=== PATIENT | female | born 1985 | race Hispanic/Latino ===

== ENCOUNTER 2016-08-13 20:14 | Emergency (ER) | payer SELFPAY ==
[2016-08-13 20:35] VITALS: BP 100/63
== END 2016-08-14 00:42 | disposition left against medical advice (07) ==
LOC: ED 20:14
DX: R50.9 Fever, unspecified (principal); H92.09 Otalgia, unspecified ear; Z53.21 Procedure and treatment not carried out due to patient leaving prior to being seen by health care provider

== ENCOUNTER 2016-08-14 15:52 | Emergency (ER) | payer SELFPAY ==
[2016-08-14 16:20] VITALS: BP 122/74
== END 2016-08-15 01:23 | disposition left against medical advice (07) ==
LOC: ED 15:52
DX: R50.9 Fever, unspecified (principal); R05 Cough; H92.09 Otalgia, unspecified ear; Z53.21 Procedure and treatment not carried out due to patient leaving prior to being seen by health care provider

== ENCOUNTER 2018-11-24 10:34 | Emergency (ER) | payer MEDICAID ==
[2018-11-24 10:56] VITALS: BP 106/50
--- NOTE | 2018-11-24 11:32 | XRay Report ---
ROUTINE CHEST, TWO VIEWS: HISTORY: Shortness of breath. The trachea, heart, mediastinal contour, lung contreras and bony thorax are unremarkable. IMPRESSION: Unremarkable chest x-ray.
--- NOTE | 2018-11-24 14:31 | Emergency Department Report ---
Minor Respiratory - HPI Chief Complaint: Dyspnea/Respdistress Stated Complaint: VOMIT/ABD PAIN/LOWER BACK Time Seen by Provider: 11/24/18 13:24 Duration: 3 Days Pain Location: Nose Severity: mild Minor Respiratory: Yes Able to Tolerate Fluids, Yes Cough, No Rhinorrhea, No Sore Throat, No Ear Pain, No Sick Contacts, No Hemoptysis, No Chest Pain, No Shortness of Breath, No Fever Other History: 33-year-old female with a history of asthma presents with coughing and feeling a little bit tightness in her chest. Patient states she normally has an inhaler but she is running out. Patient denies fevers/chills/chest pain/shortness of breath/fevers/any other symptoms. ED Review of Systems ROS: Stated complaint: VOMIT/ABD PAIN/LOWER BACK Other details as noted in HPI Comment: All other systems reviewed and negative ED Past Medical Hx - Past Medical History Previous Medical History?: Yes Hx Hypertension: No Hx Congestive Heart Failure: No Hx Diabetes: No Hx Deep Vein Thrombosis: No Hx GERD: Yes Hx Renal Disease: No Hx Sickle Cell Disease: No Hx Headaches / Migraines: Yes (migraines) Hx Seizures: No Hx Asthma: Yes Hx COPD: No Hx HIV: No - Surgical History Past Surgical History?: Yes Additional Surgical History: tubal ligation - Social History Smoking Status: Never Smoker Substance Use Type: None - Medications Home Medications: Home Medications Medication Instructions Recorded Confirmed Last Taken Type HYDROcodone/APAP 5-325 [[place] 1 each PO Q6HR PRN #30 tablet 08/11/15 Unknown Rx 5/325] ALBUTEROL Inhaler(NF) [VENTOLIN 1 puff IH PRN #1 inha 11/24/18 Unknown Rx Inhaler(NF)] Ibuprofen [Motrin 800 MG tab] 800 mg PO Q8HR PRN #30 tablet 11/24/18 Unknown Rx guaiFENesin [Robitussin] 100 mg PO TID #80 ml 11/24/18 Unknown Rx Minor Respiratory Exam - Exam General: Vital signs noted. No distress. Alert and acting appropriately. HEENT: Yes Moist Mucous Membranes, No Pharyngeal Erythema, No Pharyngeal Exudates, No Rhinorrhea, No Conjuctival Injection, No Frontal Tenderness, No Maxillary Tenderness Ear: Neither TM Bulge, Neither TM Erythema, Neither EAC Pain, Neither EAC Discharge Neck: Yes Supple, No Adenopathy Lungs: Yes Good Air Exchange, No Wheezes, No Ronchi, No Stridor, No Cough, No Labored Respirations, No Retractions, No Use of Accessory Muscles, No Other Abnormal Lung Sounds Heart: Yes Regular, No Murmur Abdomen: Yes Normal Bowel Sounds, No Tenderness, No Peritoneal Signs Skin: No Rash, No Edema Neurologic: Alert and oriented, no deficits. Musculoskeletal: Unremarkable. ED Course Vital Signs 11/24/18 10:55 Temperature 98.3 F Pulse Rate 78 Respiratory 20 Rate Blood Pressure 106/50 [Right] O2 Sat by Pulse 98 Oximetry ED Medical Decision Making - Radiology Data Radiology results: report reviewed, image reviewed ROUTINE CHEST, TWO VIEWS: HISTORY: Shortness of breath. The trachea, heart, mediastinal contour, lung contreras and bony thorax are unremarkable. IMPRESSION: Unremarkable chest x-ray. Transcribed By: TTR Dictated By: PRATEEK NI JR, MD Electronically Authenticated By: PRATEEK NI JR, MD Signed Date/Time: 11/24/18 1127 - Medical Decision Making 33-year-old female with a history of asthma presents to ED with bronchitis X-ray shows no acute cardiopulmonary infections. Discussed findings with the patient. Discussed admission she was sent home on albuterol inhaler and cough suppressants. Discussed follow-up with primary care physician. Patient is in no acute distress or respiratory distress. She is asked for a work note to return back to her place of work Critical care attestation.: If time is entered above; I have spent that time in minutes in the direct care of this critically ill patient, excluding procedure time. ED Disposition Clinical Impression: Upper respiratory infection Disposition: DC-01 TO HOME OR SELFCARE Is pt being admited?: No Does the pt Need Aspirin: No Condition: Stable Instructions: Acute Bronchitis (ED), Viral Syndrome (ED) Additional Instructions: Make sure to follow up with the primary care physician as discussed. Take all your medications as you've been prescribed. If you have any worsening symptoms or develop new symptoms please return to ED immediately. Prescriptions: Ibuprofen [Motrin 800 MG tab] 800 mg PO Q8HR PRN #30 tablet PRN Reason: Pain guaiFENesin [Robitussin] 100 mg PO TID #80 ml ALBUTEROL Inhaler(NF) [VENTOLIN Inhaler(NF)] 1 puff IH PRN #1 inha Referrals: ABDIRAHMAN SOMMERS MD [Primary Care Provider] - 3-5 Days Forms: Work/School Release Form(ED) Time of Disposition: 14:34
== END 2018-11-24 14:43 | disposition home or self-care (01) ==
LOC: ED 10:34
DX: J06.9 Acute upper respiratory infection, unspecified (principal); J45.909 Unspecified asthma, uncomplicated; G43.909 Migraine, unspecified, not intractable, without status migrainosus; K21.9 Gastro-esophageal reflux disease without esophagitis; Z98.51 Tubal ligation status
CPT/HCPCS: 71046; 99283

== ENCOUNTER 2018-11-30 02:36 | Emergency (ER) | payer MEDICAID ==
[2018-11-30] MEDS ORDERED: FIORICET PO ONE (07:42)
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
[2018-11-30 08:18] VITALS: BP 120/70
== END 2018-11-30 08:16 | disposition home or self-care (01) ==
LOC: ED 02:36
DX: S01.81XA Laceration without foreign body of other part of head, initial encounter (principal); G43.909 Migraine, unspecified, not intractable, without status migrainosus; J45.909 Unspecified asthma, uncomplicated; Z98.51 Tubal ligation status; Y04.8XXA Assault by other bodily force, initial encounter; Y93.89 Activity, other specified; Y92.89 Other specified places as the place of occurrence of the external cause; Y99.8 Other external cause status
CPT/HCPCS: 99283

== ENCOUNTER 2018-12-18 09:17 | Emergency (ER) | payer MEDICAID ==
[2018-12-18 09:41] VITALS: BP 113/68
--- NOTE | 2018-12-18 10:43 | Emergency Department Report ---
Minor Respiratory - HPI Chief Complaint: Upper Respiratory Infection Stated Complaint: COUGH/CHEST PAIN Time Seen by Provider: 12/18/18 10:27 Duration: 1 week Pain Location: Chest Severity: moderate Minor Respiratory: Yes Rhinorrhea, Yes Able to Tolerate Fluids, Yes Cough, Yes Sick Contacts, Yes Chest Pain, No Sore Throat, No Ear Pain, No Hemoptysis, No Shortness of Breath, No Fever Other History: This is a 33-year-old female who presents to the emergency room with cough and chest discomfort for 1 week. Past medical history of migraines and asthma. Patient reports these in this initially when symptoms started which has resolved. Patient states she is discomfort is worse when supine. She has not taken any medication at this time. She denies fever, sore throat, shortness of breath, palpitations, nausea, vomiting, diarrhea, and myalgia. ED Review of Systems ROS: Stated complaint: COUGH/CHEST PAIN Other details as noted in HPI Constitutional: denies: chills, fever ENT: congestion. denies: ear pain, throat pain Respiratory: cough. denies: shortness of breath, wheezing Cardiovascular: chest pain. denies: palpitations Musculoskeletal: denies: myalgia Skin: denies: rash, lesions Neurological: denies: headache, weakness, paresthesias ED Past Medical Hx - Past Medical History Hx Hypertension: No Hx Congestive Heart Failure: No Hx Diabetes: No Hx Deep Vein Thrombosis: No Hx GERD: Yes Hx Renal Disease: No Hx Sickle Cell Disease: No Hx Headaches / Migraines: Yes (migraines) Hx Seizures: No Hx Asthma: Yes Hx COPD: No Hx HIV: No - Surgical History Additional Surgical History: tubal ligation - Social History Smoking Status: Never Smoker Substance Use Type: None - Medications Home Medications: Home Medications Medication Instructions Recorded Confirmed Last Taken Type HYDROcodone/APAP 5-325 [[place] 1 each PO Q6HR PRN #30 tablet 08/11/15 Unknown Rx 5/325] ALBUTEROL Inhaler(NF) [VENTOLIN 1 puff IH PRN #1 inha 11/24/18 Unknown Rx Inhaler(NF)] guaiFENesin [Robitussin] 100 mg PO TID #80 ml 11/24/18 Unknown Rx Butalb/Acetamin/Caff 50-325-40 1 tab PO Q8H #20 tablet 11/30/18 Unknown Rx [Fioricet 50-325-40] Cyclobenzaprine [Flexeril] 10 mg PO QHS PRN #20 tablet 11/30/18 Unknown Rx Ibuprofen [Motrin 800 MG tab] 800 mg PO Q8HR PRN #30 tablet 11/30/18 Unknown Rx ALBUTEROL Inhaler (OR & NICU) 2 puff IH QID PRN #1 inhalation 12/18/18 Unknown Rx [ProAir HFA Inhaler] Azithromycin [Zithromax Z-CHUY] 250 mg PO DAILY #6 tablet 12/18/18 Unknown Rx Benzonatate [Tessalon Perles] 100 mg PO Q8HR PRN #30 capsule 12/18/18 Unknown Rx Minor Respiratory Exam - Exam General: Vital signs noted. No distress. Alert and acting appropriately. HEENT: Yes Pharyngeal Erythema (erythematous posterior pharynx, uvula midline), Yes Moist Mucous Membranes, Yes Rhinorrhea (turbinates mildly congested with clear discharge), No Pharyngeal Exudates, No Conjuctival Injection, No Frontal Tenderness, No Maxillary Tenderness Ear: Neither TM Bulge, Neither TM Erythema, Neither EAC Pain, Neither EAC Discharge Neck: Yes Supple, No Adenopathy Lungs: Yes Good Air Exchange, Yes Cough, No Wheezes, No Ronchi, No Stridor, No Labored Respirations, No Retractions, No Use of Accessory Muscles, No Other Abnormal Lung Sounds Heart: Yes Regular, No Murmur Abdomen: Yes Normal Bowel Sounds, No Tenderness, No Peritoneal Signs Skin: No Rash, No Edema Neurologic: Alert and oriented, no deficits. Musculoskeletal: Unremarkable. ED Course Vital Signs 12/18/18 09:36 Temperature 98.1 F Pulse Rate 73 Respiratory 20 Rate Blood Pressure 113/68 [Left] O2 Sat by Pulse 98 Oximetry ED Medical Decision Making - Radiology Data Radiology results: report reviewed ROUTINE CHEST, TWO VIEWS: HISTORY: Cough. The trachea, heart, mediastinal contour, lung contreras and bony thorax are unremarkable. IMPRESSION: Unremarkable chest x-ray. No change since 11/24/18. - Medical Decision Making Patient was examined by me. Vitals are normal and patient is in no acute distress. Obtained a chest x-ray. Past medical history of asthma and migraines. X-rays dictated by radiologist and report reviewed by myself. Unremarkable chest x-ray. No change since 11/24/18. Patient will be treated for a bronchitis. Start albuterol inhaler, azithromycin, and benzonatate. Patient informed of results. Plan discussed with patient to discharge home and treat outpatient. Patient discharged home in stable condition. Follow up with PCP in 2-3 days. Critical care attestation.: If time is entered above; I have spent that time in minutes in the direct care of this critically ill patient, excluding procedure time. ED Disposition Clinical Impression: Cough, Chest discomfort, Bronchitis Disposition: TO HOME OR SELFCARE Is pt being admited?: No Does the pt Need Aspirin: No Condition: Stable Instructions: Chronic Bronchitis (ED) Additional Instructions: Complete full course of antibiotics since prescribed. Follow-up with her primary care doctor. Return to the emergency room if increased shortness of breath, chest pain, or fever. Prescriptions: ALBUTEROL Inhaler (OR & NICU) [ProAir HFA Inhaler] 2 puff IH QID PRN #1 inhalation PRN Reason: Shortness Of Breath Benzonatate [Tessalon Perles] 100 mg PO Q8HR PRN #30 capsule PRN Reason: Cough Azithromycin [Zithromax Z-CHUY] 250 mg PO DAILY #6 tablet Referrals: [facility] [Outside] - 3-5 Days [facility] [Outside] - 3-5 Days [facility] [Outside] - 3-5 Days Forms: Work/School Release Form(ED) Time of Disposition: 11:44
--- NOTE | 2018-12-18 11:17 | XRay Report ---
ROUTINE CHEST, TWO VIEWS: HISTORY: Cough. The trachea, heart, mediastinal contour, lung contreras and bony thorax are unremarkable. IMPRESSION: Unremarkable chest x-ray. No change since 11/24/18.
== END 2018-12-18 12:00 | disposition home or self-care (01) ==
LOC: ED 09:17
DX: J40 Bronchitis, not specified as acute or chronic (principal); K21.9 Gastro-esophageal reflux disease without esophagitis; G43.909 Migraine, unspecified, not intractable, without status migrainosus
CPT/HCPCS: 71046

== ENCOUNTER 2019-11-29 11:14 | Emergency (ER) | payer MEDICAID ==
[2019-11-29 11:21] VITALS: BP 112/51
--- NOTE | 2019-11-29 12:18 | Event Note ---
ED Screening Note ED Screening Note: pt presents with right ear pain that began 2-3 days ago she states that her filling feel out of her right lower tooth states she is having right lower dental pain states she filled the tooth with dental puddy she states she has not seen a dentist in a year no fever, no n/v/d, no facial swelling no difficulty breathing PMHx asthma no allergies to meds LNMP: 11/17/2019 This initial assessment/diagnostic orders/clinical plan/treatment(s) is/are subject to change based on patients health status, clinical progression and re- assessment by fellow clinical providers in the ED. Further treatment and workup at subsequent clinical providers discretion. Patient/guardian urged not to elope from the ED as their condition may be serious if not clinically assessed and managed.
--- NOTE | 2019-11-29 12:21 | Emergency Department Report ---
Chief Complaint: Earache Stated Complaint: RT EARACHE Time Seen by Provider: 11/29/19 12:13 - HPI History of Present Illness: pt is a 34 yo female who presents with right ear pain that began 2-3 days ago she states that her tooth filling fell out of her right lower tooth states she is having right lower dental pain states she filled the tooth with dental puddy she states she has not seen a dentist in a year no fever, no n/v/d, no facial swelling no difficulty breathing PMHx asthma no allergies to meds LNMP: 11/17/2019 Vitals are normal On exam: Non toxic appearing, no acute distress atraumatic, normocephalic normal appearance of the eyes, PERRL, EOMI, no periorbital edema or ecchymosis moist mucus membranes, there is dental putty present in the back right lower teeth, there is no induration or edema of the jawline, no facial swelling, uvula is midline, no uvular edema, no uvular deviation, no trismus, no tongue elevation, no submandibular swelling, bilateral TMs and canals are normal, no mastoid tenderness to palpation regular heart rate and rhythm, no gallops, no rubs, no murmurs breath sounds are clear bilaterally, no w/r/r A&O x4, no focal neuro deficit skin is warm, dry, intact Patient is presenting with a cracked tooth which is causing dental pain and earache No signs of dental infection, dental abscess, facial cellulitis Patient will be referred to a dentist Patient is presenting with a nonmedical emergency at this time, medical screenin g examination performed and there is no threat to life or limb at this time Discussed return precautions with patient - Exam Vital Signs: Vital Signs 11/29/19 11:18 Temperature 98.4 F Pulse Rate 76 Respiratory 18 Rate Blood Pressure 112/51 O2 Sat by Pulse 98 Oximetry MSE screening note: Focused history and physical exam performed. ED Disposition for MSE Clinical Impression: Cracked tooth, Dental caries, Otalgia of right ear Disposition: Z-07 MED SCREENING EXAM-LEFT Is pt being admited?: No Does the pt Need Aspirin: No Condition: Stable Instructions: Dental Caries (ED), Earache (ED) Additional Instructions: may alternate tylenol or ibuprofen as needed for pain every 6-8 hours. follow up with a dentist. it is very important to follow up with the dentist. return to the emergency room for any new or worsening symptoms. Referrals: [facility] [Outside] - 3-5 Days [facility] [Outside] - 3-5 Days Forms: Work/School Release Form(ED) Time of Disposition: 12:20 Print Language: ANGUILLAN
== END 2019-11-29 12:49 | disposition left against medical advice (07) ==
LOC: ED 11:14
DX: H92.01 Otalgia, right ear (principal); K03.81 Cracked tooth; K02.9 Dental caries, unspecified; J45.909 Unspecified asthma, uncomplicated
CPT/HCPCS: 99281

== ENCOUNTER 2019-12-09 10:04 | Emergency (ER) | payer MEDICAID ==
[2019-12-09 10:14] VITALS: BP 109/56
--- NOTE | 2019-12-09 10:46 | Emergency Department Report ---
Minor Respiratory - HPI Chief Complaint: Chest Pain Stated Complaint: CHEST PAIN/RIB PAIN/NOSE STUFFY Time Seen by Provider: 12/09/19 10:46 Duration: 3 Days Pain Location: Other Severity: mild Minor Respiratory: Yes Rhinorrhea, Yes Able to Tolerate Fluids, Yes Chest Pain, No Sore Throat, No Ear Pain, No Cough, No Sick Contacts, No Hemoptysis, No Shortness of Breath, No Fever Other History: Patient is a 34-year-old female who comes to the ER complaining of right-sided rib pain and runny nose. She has a history of bronchitis. She denies fever or chills. She denies cough or sputum. Patient denies any trauma. Patient was on her phone on the way to [facility] when she was asked to get off the phone she refused. I explained her that it interferes with some of our medical equipment. She rolled her eyes and told me that a lot of things interfere with different things. Patient is ambulatory nontoxic in no acute distress ED Review of Systems ROS: Stated complaint: CHEST PAIN/RIB PAIN/NOSE STUFFY Other details as noted in HPI Comment: All other systems reviewed and negative ED Past Medical Hx - Past Medical History Hx Hypertension: No Hx Congestive Heart Failure: No Hx Diabetes: No Hx Deep Vein Thrombosis: No Hx GERD: Yes Hx Renal Disease: No Hx Sickle Cell Disease: No Hx Headaches / Migraines: Yes (migraines) Hx Seizures: No Hx Asthma: Yes Hx COPD: No Hx HIV: No - Surgical History Additional Surgical History: tubal ligation - Social History Smoking Status: Never Smoker Substance Use Type: None - Medications Home Medications: Home Medications Medication Instructions Recorded Confirmed Last Taken Type Albuterol Sulfate [Proair 90 mcg IH QID PRN #1 aer.pow.[email or web address] 12/09/19 Unknown Rx Respiclick] Cetirizine HCl [ZyrTEC] 10 mg PO DAILY #30 capsule 12/09/19 Unknown Rx Fluticasone [Flonase] 1 spray NS QDAY #1 bottle 12/09/19 Unknown Rx predniSONE [Deltasone] 20 mg PO DAILY #5 tablet 12/09/19 Unknown Rx Minor Respiratory Exam - Exam General: Vital signs noted. No distress. Alert and acting appropriately. HEENT: Yes Moist Mucous Membranes, No Pharyngeal Erythema, No Pharyngeal Exudates, No Rhinorrhea, No Conjuctival Injection, No Frontal Tenderness, No Maxillary Tenderness Ear: Neither TM Bulge, Neither TM Erythema, Neither EAC Pain, Neither EAC Discharge Neck: Yes Supple, No Adenopathy Lungs: Yes Good Air Exchange, No Wheezes, No Ronchi, No Stridor, No Cough, No Labored Respirations, No Retractions, No Use of Accessory Muscles, No Other Abnormal Lung Sounds Heart: Yes Regular, No Murmur Abdomen: Yes Normal Bowel Sounds, No Tenderness, No Peritoneal Signs Skin: No Rash, No Edema Neurologic: Alert and oriented, no deficits. Musculoskeletal: Unremarkable. ED Course Vital Signs 12/09/19 10:10 Temperature 98 F Pulse Rate 63 Respiratory 18 Rate Blood Pressure 109/56 O2 Sat by Pulse 98 Oximetry ED Medical Decision Making - EKG Data Rate: normal - EKG Data When compared to previous EKG there are: no significant change Interpretation: no acute changes - Radiology Data Radiology results: report reviewed, image reviewed - Medical Decision Making 12 lead normal xray no consolidation dc home with dc poc and pcp follow up Vital Signs 12/09/19 10:10 Temperature 98 F Pulse Rate 63 Respiratory 18 Rate Blood Pressure 109/56 O2 Sat by Pulse 98 Oximetry - Differential Diagnosis ro urti/ acs Critical care attestation.: If time is entered above; I have spent that time in minutes in the direct care of this critically ill patient, excluding procedure time. ED Disposition Clinical Impression: Bronchitis Disposition: DC-01 TO HOME OR SELFCARE Is pt being admited?: No Does the pt Need Aspirin: No Condition: Stable Instructions: Acute Bronchitis (ED) Prescriptions: predniSONE [Deltasone] 20 mg PO DAILY #5 tablet Fluticasone [Flonase] 1 spray NS QDAY #1 bottle Albuterol Sulfate [Proair Respiclick] 90 mcg IH QID PRN #1 aer.[email or web address] PRN Reason: Wheezing Cetirizine HCl [ZyrTEC] 10 mg PO DAILY #30 capsule Time of Disposition: 10:57
--- NOTE | 2019-12-09 11:58 | XRay Report ---
CHEST 2 VIEWS INDICATION / CLINICAL INFORMATION: Chest pain. COMPARISON: 12/18/2018 FINDINGS: SUPPORT DEVICES: None. HEART / MEDIASTINUM: No significant abnormality. LUNGS / PLEURA: No significant pulmonary or pleural abnormality. No pneumothorax. ADDITIONAL FINDINGS: No significant additional findings. IMPRESSION: 1. No acute findings. Signer Name: Zaid Davey MD Signed: 12/09/2019 11:53 AM Workstation Name: [id number]
== END 2019-12-09 11:03 | disposition home or self-care (01) ==
LOC: ED 10:04
DX: J40 Bronchitis, not specified as acute or chronic (principal); G43.909 Migraine, unspecified, not intractable, without status migrainosus; Z98.51 Tubal ligation status; Z79.899 Other long term (current) drug therapy
CPT/HCPCS: 71046; 93005

== ENCOUNTER 2019-12-14 16:30 | Emergency (ER) | payer MEDICAID ==
[2019-12-14 16:44] VITALS: BP 121/67
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
== END 2019-12-14 18:26 | disposition left against medical advice (07) ==
LOC: ED 16:30
DX: H61.22 Impacted cerumen, left ear (principal); G43.909 Migraine, unspecified, not intractable, without status migrainosus; Z98.51 Tubal ligation status
CPT/HCPCS: 99282

== ENCOUNTER 2020-03-31 07:40 | Emergency (ER) | payer MEDICAID ==
[2020-03-31] MEDS ORDERED: IBUPROFEN 600 MG TAB PO ONE (08:26)
--- NOTE | 2020-03-31 08:26 | Emergency Department Report ---
ED ENT HPI - General Chief complaint: Earache Stated complaint: RT EAR/NOSE PAIN Time Seen by Provider: 03/31/20 08:08 Source: patient Mode of arrival: Ambulatory Limitations: No Limitations - History of Present Illness Initial comments: 34 yr old female presents to ED c/o right ear pain. Onset about 4 days ago. She states its a throbbing pain radiating into right anterior neck. She reports associated ROGERS, rhinorrhea and nasal congestions. She denies fever, chills, cough, ear drainage or any other symptoms at this time. MD complaint: ear pain -: days(s) (4) - Related Data Previous Rx's Medication Instructions Recorded Last Taken Type Albuterol Sulfate [Proair 90 mcg IH QID PRN #1 aer.pow.ba 12/09/19 Unknown Rx Respiclick] predniSONE [Deltasone] 20 mg PO DAILY #5 tablet 12/09/19 Unknown Rx Amoxicillin [Trimox CAP] 500 mg PO Q8H #30 capsule 03/31/20 Unknown Rx Cetirizine HCl [ZyrTEC 10mg cap] 10 mg PO DAILY #30 capsule 03/31/20 Unknown Rx Fluticasone [Flonase] 2 spray NS QDAY #1 bottle 03/31/20 Unknown Rx Allergies Allergy/AdvReac Type Severity Reaction Status Date / Time No Known Allergies Allergy Verified 12/09/19 10:09 ED Dental HPI - General Chief complaint: Earache Stated complaint: RT EAR/NOSE PAIN Time Seen by Provider: 03/31/20 08:08 Source: patient Mode of arrival: Ambulatory Limitations: No Limitations - Related Data Previous Rx's Medication Instructions Recorded Last Taken Type Albuterol Sulfate [Proair 90 mcg IH QID PRN #1 aer.pow. 12/09/19 Unknown Rx Respiclick] predniSONE [Deltasone] 20 mg PO DAILY #5 tablet 12/09/19 Unknown Rx Amoxicillin [Trimox CAP] 500 mg PO Q8H #30 capsule 03/31/20 Unknown Rx Cetirizine HCl [ZyrTEC 10mg cap] 10 mg PO DAILY #30 capsule 03/31/20 Unknown Rx Fluticasone [Flonase] 2 spray NS QDAY #1 bottle 03/31/20 Unknown Rx Allergies Allergy/AdvReac Type Severity Reaction Status Date / Time No Known Allergies Allergy Verified 12/09/19 10:09 ED Review of Systems ROS: Stated complaint: RT EAR/NOSE PAIN Other details as noted in HPI Comment: All other systems reviewed and negative Constitutional: denies: chills, fever Eyes: denies: eye pain, eye discharge, vision change ENT: ear pain Respiratory: denies: cough, shortness of breath, wheezing Cardiovascular: denies: chest pain, palpitations Musculoskeletal: denies: back pain, joint swelling, arthralgia Skin: denies: rash, lesions Neurological: headache ED Past Medical Hx - Past Medical History Previous Medical History?: Yes Hx Hypertension: No Hx Congestive Heart Failure: No Hx Diabetes: No Hx Deep Vein Thrombosis: No Hx GERD: Yes Hx Renal Disease: No Hx Sickle Cell Disease: No Hx Headaches / Migraines: Yes (migraines) Hx Seizures: No Hx Asthma: Yes Hx COPD: No Hx HIV: No - Surgical History Past Surgical History?: Yes Additional Surgical History: tubal ligation - Social History Smoking Status: Never Smoker Substance Use Type: None - Medications Home Medications: Home Medications Medication Instructions Recorded Confirmed Last Taken Type Albuterol Sulfate [Proair 90 mcg IH QID PRN #1 aer.pow.ba 12/09/19 Unknown Rx Respiclick] predniSONE [Deltasone] 20 mg PO DAILY #5 tablet 12/09/19 Unknown Rx Amoxicillin [Trimox CAP] 500 mg PO Q8H #30 capsule 03/31/20 Unknown Rx Cetirizine HCl [ZyrTEC 10mg cap] 10 mg PO DAILY #30 capsule 03/31/20 Unknown Rx Fluticasone [Flonase] 2 spray NS QDAY #1 bottle 03/31/20 Unknown Rx ED Physical Exam - General Limitations: No Limitations General appearance: alert, in no apparent distress - Head Head exam: Present: atraumatic, normocephalic, normal inspection - Eye Eye exam: Present: normal appearance, PERRL, EOMI Pupils: Present: normal accommodation - ENT ENT exam: Present: normal orophraynx, mucous membranes moist, other (TMs cloudy with effusion behind both TMs. No apparent erythema noted to TMs. Ear canals nl bilaterally; +sinus ttp frontal/maxillary) - Neck Neck exam: Present: normal inspection. Absent: meningismus, full ROM - Respiratory Respiratory exam: Present: normal lung sounds bilaterally. Absent: respiratory distress - Cardiovascular Cardiovascular Exam: Present: regular rate, normal rhythm, normal heart sounds - GI/Abdominal GI/Abdominal exam: Present: soft. Absent: distended, tenderness - Back Exam Back exam: Present: normal inspection - Neurological Exam Neurological exam: Present: alert, oriented X3, CN II-XII intact, normal gait - Skin Skin exam: Present: intact ED Course Vital Signs 03/31/20 07:47 Temperature 97.9 F Pulse Rate 61 Respiratory 16 Rate Blood Pressure 100/49 [Left] O2 Sat by Pulse 98 Oximetry Critical care attestation.: If time is entered above; I have spent that time in minutes in the direct care of this critically ill patient, excluding procedure time. ED Disposition Clinical Impression: Serous otitis media, Sinusitis Disposition: - TO HOME OR SELFCARE Is pt being admited?: No Does the pt Need Aspirin: No Condition: Stable Instructions: Sinusitis (ED), Earache (ED) Additional Instructions: Take medications as prescribed. You can take tylenol or motrin for pain. Follow up with your PCP. Return to ED if worse. Prescriptions: Fluticasone [Flonase] 2 spray NS QDAY #1 bottle Amoxicillin [Trimox CAP] 500 mg PO Q8H #30 capsule Cetirizine HCl [ZyrTEC 10mg cap] 10 mg PO DAILY #30 capsule Referrals: YSABEL HANSEN MD [Staff Physician] - 3-5 Days Forms: Work/School Release Form(ED) Time of Disposition: 08:25
[2020-03-31 08:49] VITALS: BP 99/52
== END 2020-03-31 08:58 | disposition home or self-care (01) ==
LOC: ED 07:40
DX: H65.91 Unspecified nonsuppurative otitis media, right ear (principal); J32.9 Chronic sinusitis, unspecified; K21.9 Gastro-esophageal reflux disease without esophagitis; G43.909 Migraine, unspecified, not intractable, without status migrainosus; J45.909 Unspecified asthma, uncomplicated; Z98.51 Tubal ligation status; Z79.2 Long term (current) use of antibiotics; Z79.899 Other long term (current) drug therapy
CPT/HCPCS: 99282

== ENCOUNTER 2020-07-05 18:34 | Emergency (ER) | payer MEDICAID | END 2020-07-05 19:03 | disposition left against medical advice (07) | LOC: ED 18:34 | DX: J00 Acute nasopharyngitis [common cold] (principal); Z53.21 Procedure and treatment not carried out due to patient leaving prior to being seen by health care provider ==

== ENCOUNTER 2021-04-13 13:29 | Emergency (ER) | payer MEDICAID ==
[2021-04-13 14:10] VITALS: BP 103/41
--- NOTE | 2021-04-13 14:30 | Emergency Department Report ---
ED ENT HPI - General Chief complaint: Dental/Oral Stated complaint: TOOTHACHE Time Seen by Provider: 04/13/21 14:25 Source: patient Mode of arrival: Ambulatory Limitations: No Limitations - History of Present Illness Initial comments: 35-year-old female presents to the emergency room complaining of a toothache since Friday. Patient states that a filling fell out of her tooth. Patient denies any trauma. Patient states that she made an effort to call a dentist that is on her Medicaid card but they do not have an appointment available until April. She denies any headache no chest pain no shortness of breath. She denies any facial swelling no pain when she eats. MD complaint: tooth pain Onset/Timin -: days(s) Location: tooth # (28) Severity scale (0 -10): 8 Quality: aching Consistency: constant Improves with: none Worsens with: none Context- Dental: history of dental caries Associated Symptoms: toothache. denies: gum swelling - Related Data Previous Rx's Medication Instructions Recorded Last Taken Type Albuterol Sulfate [Proair 90 mcg IH QID PRN #1 aer.pow.ba 12/09/19 Unknown Rx Respiclick] predniSONE [Deltasone] 20 mg PO DAILY #5 tablet 12/09/19 Unknown Rx Amoxicillin [Trimox CAP] 500 mg PO Q8H #30 capsule 03/31/20 Unknown Rx Cetirizine HCl [ZyrTEC 10mg cap] 10 mg PO DAILY #30 capsule 03/31/20 Unknown Rx Fluticasone [Flonase] 2 spray NS QDAY #1 bottle 03/31/20 Unknown Rx Acetaminophen/Codeine [Tylenol 1 tab PO Q4HR PRN #8 tablet 04/13/21 Unknown Rx /Codeine # 3 tab] Ibuprofen [Motrin 600 MG tab] 600 mg PO Q8H PRN #30 tablet 04/13/21 Unknown Rx Allergies Allergy/AdvReac Type Severity Reaction Status Date / Time No Known Allergies Allergy Verified 12/09/19 10:09 ED Dental HPI - General Chief complaint: Dental/Oral Stated complaint: TOOTHACHE Time Seen by Provider: 04/13/21 14:25 Source: patient Mode of arrival: Ambulatory Limitations: No Limitations - Related Data Previous Rx's Medication Instructions Recorded Last Taken Type Albuterol Sulfate [Proair 90 mcg IH QID PRN #1 aer.pow.ba 12/09/19 Unknown Rx Respiclick] predniSONE [Deltasone] 20 mg PO DAILY #5 tablet 12/09/19 Unknown Rx Amoxicillin [Trimox CAP] 500 mg PO Q8H #30 capsule 03/31/20 Unknown Rx Cetirizine HCl [ZyrTEC 10mg cap] 10 mg PO DAILY #30 capsule 03/31/20 Unknown Rx Fluticasone [Flonase] 2 spray NS QDAY #1 bottle 03/31/20 Unknown Rx Acetaminophen/Codeine [Tylenol 1 tab PO Q4HR PRN #8 tablet 04/13/21 Unknown Rx /Codeine # 3 tab] Ibuprofen [Motrin 600 MG tab] 600 mg PO Q8H PRN #30 tablet 04/13/21 Unknown Rx Allergies Allergy/AdvReac Type Severity Reaction Status Date / Time No Known Allergies Allergy Verified 12/09/19 10:09 ED Review of Systems ROS: Stated complaint: TOOTHACHE Other details as noted in HPI Comment: All other systems reviewed and negative ED Past Medical Hx - Past Medical History Hx Hypertension: No Hx Congestive Heart Failure: No Hx Diabetes: No Hx Deep Vein Thrombosis: No Hx GERD: Yes Hx Renal Disease: No Hx Sickle Cell Disease: No Hx Headaches / Migraines: Yes (migraines) Hx Seizures: No Hx Asthma: Yes Hx COPD: No Hx HIV: No - Surgical History Additional Surgical History: tubal ligation - Social History Smoking Status: Never Smoker Substance Use Type: None - Medications Home Medications: Home Medications Medication Instructions Recorded Confirmed Last Taken Type Albuterol Sulfate [Proair 90 mcg IH QID PRN #1 aer.pow. 12/09/19 Unknown Rx Respiclick] predniSONE [Deltasone] 20 mg PO DAILY #5 tablet 12/09/19 Unknown Rx Amoxicillin [Trimox CAP] 500 mg PO Q8H #30 capsule 03/31/20 Unknown Rx Cetirizine HCl [ZyrTEC 10mg cap] 10 mg PO DAILY #30 capsule 03/31/20 Unknown Rx Fluticasone [Flonase] 2 spray NS QDAY #1 bottle 03/31/20 Unknown Rx Acetaminophen/Codeine [Tylenol 1 tab PO Q4HR PRN #8 tablet 04/13/21 Unknown Rx /Codeine # 3 tab] Ibuprofen [Motrin 600 MG tab] 600 mg PO Q8H PRN #30 tablet 04/13/21 Unknown Rx ED Physical Exam - General Limitations: No Limitations General appearance: alert, in no apparent distress - Head Head exam: Present: atraumatic, normocephalic - Eye Eye exam: Present: normal appearance - Expanded ENT Exam Expanded Teeth exam: Present: dental caries, other (Tooth #24 has a temporary filling). Absent: gingival enlargement - Neck Neck exam: Present: normal inspection - Respiratory Respiratory exam: Absent: accessory muscle use - Cardiovascular Cardiovascular Exam: Present: regular rate - Extremities Exam Extremities exam: Present: normal inspection - Back Exam Back exam: Present: normal inspection - Neurological Exam Neurological exam: Present: alert, oriented X3, normal gait - Psychiatric Psychiatric exam: Present: normal affect, normal mood - Skin Skin exam: Present: warm, dry, intact, normal color. Absent: rash ED Course Vital Signs 04/13/21 13:53 Temperature 98.7 F Pulse Rate 65 Respiratory 16 Rate Blood Pressure 103/41 O2 Sat by Pulse 97 Oximetry ED Medical Decision Making - Medical Decision Making 35-year-old female presents to the emergency room complaining of a toothache since Friday. Patient states that a filling fell out of her tooth. Patient denies any trauma. Patient states that she made an effort to call a dentist that is on her Medicaid card but they do not have an appointment available until April. She denies any headache no chest pain no shortness of breath. She denies any facial swelling no pain when she eats. Discussed with patient that she can follow-up at a dentist. She can take ibuprofen or Tylenol for pain. Critical care attestation.: If time is entered above; I have spent that time in minutes in the direct care of this critically ill patient, excluding procedure time. ED Disposition Clinical Impression: Pain due to dental caries Disposition: HOME / SELF CARE / HOMELESS Is pt being admited?: No Does the pt Need Aspirin: No Condition: Stable Instructions: Preventive Dental Care, Adult Additional Instructions: Please take pain medication as prescribed. Follow-up with a dentist. Prescriptions: Ibuprofen [Motrin 600 MG tab] 600 mg PO Q8H PRN #30 tablet PRN Reason: Pain Acetaminophen/Codeine [Tylenol /Codeine # 3 tab] 1 tab PO Q4HR PRN #8 tablet PRN Reason: Pain Referrals: [facility] [Outside] - 3-5 Days [facility] [Outside] - 3-5 Days [facility] [Outside] - 3-5 Days Forms: Work/School Release Form(ED)
== END 2021-04-13 14:54 | disposition home or self-care (01) ==
LOC: ED 13:29
DX: K02.9 Dental caries, unspecified (principal); G43.909 Migraine, unspecified, not intractable, without status migrainosus; K21.9 Gastro-esophageal reflux disease without esophagitis; J45.909 Unspecified asthma, uncomplicated
CPT/HCPCS: 99281

== ENCOUNTER 2021-05-06 21:00 | Emergency (ER) | payer MEDICAID ==
[2021-05-06 21:11] VITALS: BP 105/48
--- NOTE | 2021-05-06 21:26 | Emergency Department Report ---
<MARLI TYLER - Last Filed: 05/06/21 22:46> ED Female HPI - General Chief complaint: Urogenital-Female Stated complaint: LOWER BACK/PELVIC PN Source: patient Mode of arrival: Ambulatory Limitations: No Limitations - History of Present Illness Initial comments: Patient is a A0 35-year-old white female with a history of GERD, migraine headaches and asthma who presents to the ED with complaint of acute onset persistent urinary frequency and urgency, dysuria, hematuria, suprapubic pressure and pain that radiates to the lower back for the last 1 week. Patient states that the symptoms have been worsening despite her taking [id number] remedies for dysuria. Patient denies fever, chills, nausea, vomiting, diarrhea, cough, dyspareunia, heavy lifting or fall, chest pain or shortness of breath, hematemesis, hematochezia, sore throat, headache or vaginal discharge. MD Complaint: pelvic pain, other (low back pain; hematuria; urinary urgency and frequency) -: Sudden, week(s) (1) Location: suprapubic Radiation: suprapubic, other (low back pain) Severity: moderate Severity scale (0 -10): 5 Quality: cramping, aching Consistency: constant Improves with: none Worsens with: urination Are you Now?: No Last Menstrual Period: 04/21/21 EDC: 01/26/22 Associated Symptoms: denies other symptoms, vaginal bleeding, abdominal pain (Suprapubic pain and pressure), dysuria, hematuria, other (Urinary frequency and urgency). denies: vaginal discharge, nausea/vomiting, fever/chills, headaches, loss of appetite, rash, seizure, shortness of breath, syncope, weakness - Related Data Sexually active: Yes : 5 Para: 5 A: 0 Previous Rx's Medication Instructions Recorded Last Taken Type Albuterol Sulfate [Proair 90 mcg IH QID PRN #1 aer.pow.ba 12/09/19 Unknown Rx Respiclick] predniSONE [Deltasone] 20 mg PO DAILY #5 tablet 12/09/19 Unknown Rx Amoxicillin [Trimox CAP] 500 mg PO Q8H #30 capsule 03/31/20 Unknown Rx Cetirizine HCl [ZyrTEC 10mg cap] 10 mg PO DAILY #30 capsule 03/31/20 Unknown Rx Fluticasone [Flonase] 2 spray NS QDAY #1 bottle 03/31/20 Unknown Rx Acetaminophen/Codeine [Tylenol 1 tab PO Q4HR PRN #8 tablet 04/13/21 Unknown Rx /Codeine # 3 tab] Ibuprofen [Motrin 600 MG tab] 600 mg PO Q8H PRN #30 tablet 04/13/21 Unknown Rx Ibuprofen [Motrin] 600 mg PO Q8H PRN #30 tablet 05/06/21 Unknown Rx Ondansetron [Zofran Odt] 4 mg PO Q6HR PRN #15 tab.rapdis 05/06/21 Unknown Rx Phenazopyridine [Pyridium] 200 mg PO Q12H #20 tab 05/06/21 Unknown Rx Sulfamethoxazole/Trimethoprim 1 each PO Q12H #20 tablet 05/06/21 Unknown Rx [Bactrim DS TAB] Allergies Allergy/AdvReac Type Severity Reaction Status Date / Time No Known Allergies Allergy Verified 12/09/19 10:09 ED Review of Systems Constitutional: denies: chills, fever Eyes: denies: eye pain, eye discharge, vision change ENT: denies: ear pain, throat pain Respiratory: denies: cough, shortness of breath, wheezing Cardiovascular: denies: chest pain, palpitations Endocrine: no symptoms reported Gastrointestinal: abdominal pain (Suprapubic pressure and pain). denies: nausea, vomiting, diarrhea, constipation, melena, hematochezia Genitourinary: urgency, dysuria, frequency, hematuria. denies: discharge Musculoskeletal: denies: back pain, joint swelling, arthralgia Skin: denies: rash, lesions Neurological: denies: headache, weakness, paresthesias Psychiatric: denies: anxiety, depression Hematological/Lymphatic: denies: easy bleeding, easy bruising ED Past Medical Hx - Past Medical History Previous Medical History?: Yes Hx Hypertension: No Hx Congestive Heart Failure: No Hx Diabetes: No Hx Deep Vein Thrombosis: No Hx GERD: Yes Hx Renal Disease: No Hx Sickle Cell Disease: No Hx Headaches / Migraines: Yes (migraines) Hx Seizures: No Hx Asthma: Yes Hx COPD: No Hx HIV: No - Surgical History Past Surgical History?: Yes Additional Surgical History: tubal ligation - Social History Smoking Status: Never Smoker Substance Use Type: None - Medications Home Medications: Home Medications Medication Instructions Recorded Confirmed Last Taken Type Albuterol Sulfate [Proair 90 mcg IH QID PRN #1 aer.pow.ba 12/09/19 Unknown Rx Respiclick] predniSONE [Deltasone] 20 mg PO DAILY #5 tablet 12/09/19 Unknown Rx Amoxicillin [Trimox CAP] 500 mg PO Q8H #30 capsule 03/31/20 Unknown Rx Cetirizine HCl [ZyrTEC 10mg cap] 10 mg PO DAILY #30 capsule 03/31/20 Unknown Rx Fluticasone [Flonase] 2 spray NS QDAY #1 bottle 03/31/20 Unknown Rx Acetaminophen/Codeine [Tylenol 1 tab PO Q4HR PRN #8 tablet 04/13/21 Unknown Rx /Codeine # 3 tab] Ibuprofen [Motrin 600 MG tab] 600 mg PO Q8H PRN #30 tablet 04/13/21 Unknown Rx Ibuprofen [Motrin] 600 mg PO Q8H PRN #30 tablet 05/06/21 Unknown Rx Ondansetron [Zofran Odt] 4 mg PO Q6HR PRN #15 tab.rapdis 05/06/21 Unknown Rx Phenazopyridine [Pyridium] 200 mg PO Q12H #20 tab 05/06/21 Unknown Rx Sulfamethoxazole/Trimethoprim 1 each PO Q12H #20 tablet 05/06/21 Unknown Rx [Bactrim DS TAB] ED Physical Exam - General Limitations: No Limitations General appearance: alert, in no apparent distress - Head Head exam: Present: atraumatic, normocephalic, normal inspection - Eye Eye exam: Present: normal appearance, PERRL, EOMI Pupils: Present: normal accommodation - ENT ENT exam: Present: normal exam, normal orophraynx, mucous membranes moist, TM's normal bilaterally, normal external ear exam - Neck Neck exam: Present: normal inspection, full ROM - Respiratory Respiratory exam: Present: normal lung sounds bilaterally. Absent: respiratory distress, wheezes, rales, rhonchi, chest wall tenderness, accessory muscle use, decreased breath sounds, other - Cardiovascular Cardiovascular Exam: Present: regular rate, normal rhythm, normal heart sounds. Absent: systolic murmur, diastolic murmur, rubs, gallop - GI/Abdominal GI/Abdominal exam: Present: soft, normal bowel sounds. Absent: tenderness, guarding, rebound, rigid, hyperactive bowel sounds, hypoactive bowel sounds, organomegaly, mass - Extremities Exam Extremities exam: Present: normal inspection, full ROM, normal capillary refill - Back Exam Back exam: Present: normal inspection, full ROM. Absent: tenderness, CVA tenderness (R), CVA tenderness (L), muscle spasm, paraspinal tenderness, vertebral tenderness - Neurological Exam Neurological exam: Present: alert, oriented X3, CN II-XII intact, normal gait, reflexes normal - Psychiatric Psychiatric exam: Present: normal affect, normal mood - Skin Skin exam: Present: warm, dry, intact, normal color. Absent: rash ED Medical Decision Making - Medical Decision Making This is a A0 35-year-old white female with a history of GERD, migraine headaches and asthma who presents to the ED with complaint of acute onset persistent urinary frequency and urgency, dysuria, hematuria, suprapubic pressure and pain that radiates to the lower back for the last 1 week. Patient states that the symptoms have been worsening despite her taking ymys-drg-jvkjilz remedies for dysuria. In the ED, patient is alert and oriented x3 and is not in any distress. Urinalysis showed significant urinary tract infection but urine hCG was negative. Patient was treated in the ED with Rocephin 1 g intramuscular injection and pain medications. Patient was therefore discharged home on pain medications and oral antibiotics for UTI. Patient was advised to follow-up with her primary care physician in 7 to 10 days for reevaluation or return to the ED immediately if symptoms get worse. - Differential Diagnosis UTI; ; pyelonephritis; kidney stones; ED Disposition Clinical Impression: Dysuria Disposition: 01 HOME / SELF CARE / HOMELESS Is pt being admited?: No Does the pt Need Aspirin: No Condition: Stable Instructions: Pelvic Pain, Female, Ixlq-sj-Rlkv, Urinary Tract Infection, Adult, [id number]-gn-[id number] Additional Instructions: Urinalysis showed significant urinary tract infection. Therefore take medications with food, drink plenty of fluids and follow-up with your primary care physician in 7 to 10 days for reevaluation. Return to the ED immediately if symptoms get worse Prescriptions: Sulfamethoxazole/Trimethoprim [Bactrim DS TAB] 1 each PO Q12H #20 tablet Ibuprofen [Motrin] 600 mg PO Q8H PRN #30 tablet PRN Reason: Pain Phenazopyridine [Pyridium] 200 mg PO Q12H #20 tab Ondansetron [Zofran Odt] 4 mg PO Q6HR PRN #15 tab.rapdis PRN Reason: Nausea Referrals: [facility] [Provider Group] - 7-10 days Time of Disposition: 22:47 Print Language: TELUGU <JOSEFA KERR - Last Filed: 05/07/21 01:19> ED Review of Systems ROS: Stated complaint: LOWER BACK/PELVIC PN Other details as noted in HPI ED Course Vital Signs 05/06/21 21:10 Temperature 98.9 F Pulse Rate 74 Respiratory 17 Rate Blood Pressure 105/48 O2 Sat by Pulse 97 Oximetry ED Medical Decision Making - Lab Data Vital Signs 05/06/21 21:10 Temperature 98.9 F Pulse Rate 74 Respiratory 17 Rate Blood Pressure 105/48 O2 Sat by Pulse 97 Oximetry Lab Results 05/06/21 Range/Units 21:55 Urine Color Gina (Yellow) Urine Turbidity Clear (Clear) Urine pH 7.0 (5.0-7.0) Ur Specific [place] 1.013 (1.003-1.030) Urine Protein <15 mg/dl (Negative) mg/dL Urine Glucose (UA) Neg (Negative) mg/dL Urine Ketones Neg (Negative) mg/dL Urine Blood Neg (Negative) Urine Nitrite Pos (Negative) Urine Bilirubin Neg (Negative) Urine Urobilinogen 2.0 (<2.0) mg/dL Ur Leukocyte Esterase Neg (Negative) Urine WBC (Auto) < 1.0 (0.0-6.0) /HPF Urine RBC (Auto) < 1.0 (0.0-6.0) /HPF U Epithel Cells (Auto) 3.0 (0-13.0) /HPF Urine Mucus Few /HPF Urine HCG, Qual Negative (Negative) Critical care attestation.: If time is entered above; I have spent that time in minutes in the direct care of this critically ill patient, excluding procedure time. ED Disposition Is pt being admited?: No Does the pt Need Aspirin: No
[2021-05-06 22:38] LABS: Bilirubin,Urine NEG (Negative); Blood,Urine NEG (Negative); Color,Urine Amber (Yellow); Mucus,Urine FEW /HPF; Protein,Urine <15 mg/dL mg/dL (Negative); RBC,Urine < 1.0 /HPF (0.0-6.0); WBC,Urine < 1.0 /HPF (0.0-6.0)
[2021-05-06 22:41] LABS: HCG Qualitative,Urine Negative (Negative)
[2021-05-06] MEDS ORDERED: IBUPROFEN 600 MG TAB PO ONE (22:45)
[2021-05-06] MEDS ORDERED: LIDOCAINE-MPF (1%) 10 MG/1 ML VIAL 5 ML INFILTRATI ONE (22:45)
[2021-05-06] MEDS ORDERED: ACETAMINOPHEN 500 MG TAB PO ONE (22:45)
== END 2021-05-06 23:39 | disposition home or self-care (01) ==
LOC: ED 21:00
DX: R30.0 Dysuria (principal); J45.909 Unspecified asthma, uncomplicated
CPT/HCPCS: 81001; 81025; 96372; 99283; J0696

== ENCOUNTER 2021-09-10 12:48 | Emergency (ER) | payer MEDICAID ==
--- NOTE | 2021-09-10 15:04 | Emergency Department Report ---
Abscess Boil HPI - HPI Chief Complaint: Wound/Laceration Stated Complaint: POSS CYST Duration: >1 Week Location: Other Severity: Mild History: Yes Pain, No Fever, No Purulent Drainage, No Numbness, No Foreign Body, No Previous History, No Insect Bite HPI: 36 yo comes to ER co pain on left scapular area- reports a bump. No fever or chills. no other complaints. Has taken nothing textile dyer in ER. Has not seen pcp Home Medications: Previous Rx's Medication Instructions Recorded Last Taken Type Ibuprofen [Motrin] 800 mg PO Q8HR PRN #30 tablet 09/10/21 Unknown Rx Sulfamethoxazole/Trimethoprim 1 each PO BID #10 tablet 09/10/21 Unknown Rx [Bactrim DS TAB] Allergies/Adverse Reactions: Allergies Allergy/AdvReac Type Severity Reaction Status Date / Time No Known Allergies Allergy Verified 12/09/19 10:09 ED Review of Systems ROS: Stated complaint: POSS CYST Other details as noted in HPI Comment: All other systems reviewed and negative ED Past Medical Hx - Past Medical History Previous Medical History?: Yes Hx Hypertension: No Hx Congestive Heart Failure: No Hx Diabetes: No Hx Deep Vein Thrombosis: No Hx GERD: Yes Hx Renal Disease: No Hx Sickle Cell Disease: No Hx Headaches / Migraines: Yes (migraines) Hx Seizures: No Hx Asthma: Yes Hx COPD: No Hx HIV: No - Surgical History Past Surgical History?: Yes Additional Surgical History: tubal ligation - Family History Family history: no significant - Social History Smoking Status: Never Smoker - Medications Home Medications: Home Medications Medication Instructions Recorded Confirmed Last Taken Type Ibuprofen [Motrin] 800 mg PO Q8HR PRN #30 tablet 09/10/21 Unknown Rx Sulfamethoxazole/Trimethoprim 1 each PO BID #10 tablet 09/10/21 Unknown Rx [Bactrim DS TAB] ED Abscess Boil Physical Exam - Exam General: Vital signs noted. No distress. Alert and acting appropriately. Size: 1 cm Exam: Yes Tenderness, Yes Normal Neurologic Exam, Yes Normal Circulation, No Fluctuance, No Surrounding Cellulites/Erythema, No Lymphangitis, No Crepitation, No Heart Murmur I & D Note - I & D Note I & D Note: none ED Course Vital Signs 09/10/21 13:59 Temperature 98.4 F Pulse Rate 66 Respiratory 18 Rate Blood Pressure 107/56 O2 Sat by Pulse 100 Oximetry Critical care attestation.: If time is entered above; I have spent that time in minutes in the direct care of this critically ill patient, excluding procedure time. ED Medical Decision Making - Medical Decision Making Vital Signs 09/10/21 13:59 Temperature 98.4 F Pulse Rate 66 Respiratory 18 Rate Blood Pressure 107/56 O2 Sat by Pulse 100 Oximetry simple boil on left scapular area not ready for I/D red/firm no fever or chills vss dc home with dc instructions wound care/meds/diet/activity and follow up- she verbalizes understanding - Differential Diagnosis simple boil ED Disposition Clinical Impression: Boil Disposition: HOME / SELF CARE / HOMELESS Is pt being admited?: No Does the pt Need Aspirin: No Condition: Stable Instructions: Skin Abscess Additional Instructions: warm compresses baths in epsom salts will help to sooth meds as ordered today until gone tylenol can be added for pain follow up with pcp in 1 week to be sure it is healing referral below Prescriptions: Sulfamethoxazole/Trimethoprim [Bactrim DS TAB] 1 each PO BID #10 tablet Ibuprofen [Motrin] 800 mg PO Q8HR PRN #30 tablet PRN Reason: Pain, Moderate (4-6) Referrals: YSABEL HANSEN MD [Staff Physician] - 3-5 Days Time of Disposition: 15:05
[2021-09-10 16:22] VITALS: BP 108/56
== END 2021-09-10 16:29 | disposition home or self-care (01) ==
LOC: ED 12:48
DX: L02.821 Furuncle of head [any part, except face] (principal); K21.9 Gastro-esophageal reflux disease without esophagitis; G43.909 Migraine, unspecified, not intractable, without status migrainosus; J45.909 Unspecified asthma, uncomplicated
CPT/HCPCS: 99282

== ENCOUNTER 2022-04-12 07:36 | Emergency (ER) | payer MEDICAID ==
[2022-04-12 08:51] VITALS: BP 113/84
== END 2022-04-12 23:05 | disposition left against medical advice (07) ==
LOC: ED 07:36
DX: J00 Acute nasopharyngitis [common cold] (principal); Z53.21 Procedure and treatment not carried out due to patient leaving prior to being seen by health care provider